=== PATIENT | female | born 1985 | race American Indian/Alaskan Native ===

== ENCOUNTER 2019-11-30 00:50 | Emergency (ER) | payer SELFPAY ==
[2019-11-30] MEDS ORDERED: SODIUM CHLORIDE 0.9% 1000 ML 1,000 ML IV ONE (01:06)
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
[2019-11-30 01:46] LABS: Basophils % (Auto) 0.4 % (0.0-1.8); Eosinophils # (Auto) 0.1 K/mm3 (0.0-0.4); Eosinophils % (Auto) 1.6 % (0.0-4.3); Hematocrit 30.9 % (30.3-42.9); Lymphocytes # (Auto) 1.6 K/mm3 (1.2-5.4); Lymphocytes % (Auto) 17.8 % (13.4-35.0); Mean Corpuscular HGB Conc 33 % (30-34); Mean Corpuscular Volume 76 fl (79-97); Monocytes # (Auto) 0.5 K/mm3 (0.0-0.8); Monocytes % (Auto) 5.8 % (0.0-7.3); Platelet Count 365 K/mm3 (140-440); Red Blood Count 4.07 M/mm3 (3.65-5.03); Red Cell Distribution Width 16.5 % (13.2-15.2)
[2019-11-30 02:02] LABS: Blood Urea Nitrogen 13 mg/dL (7-17); Hemolysis Index 0
[2019-11-30 02:09] LABS: BUN/Creatinine Ratio 19
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
[2019-11-30 03:26] LABS: Bilirubin,Urine NEG (Negative); Blood,Urine NEG (Negative); Color,Urine Yellow (Yellow); Mucus,Urine FEW /HPF; Protein,Urine <15 mg/dL mg/dL (Negative); Urobilinogen,Urine < 2.0 mg/dL (<2.0); WBC,Urine < 1.0 /HPF (0.0-6.0)
[2019-11-30 03:31] LABS: Amphetamine Screen,Urine PRESUMPTIVE NEGATIVE; Benzodiazepines Screen,Urine PRESUMPTIVE NEGATIVE; Cannabinoid Screen,Urine PRESUMPTIVE POSITIVE; Cocaine Screen,Urine PRESUMPTIVE NEGATIVE; Methadone Screen,Urine PRESUMPTIVE NEGATIVE; Opiate Screen,Urine PRESUMPTIVE NEGATIVE
[2019-11-30 04:54] VITALS: BP 110/60
== END 2019-11-30 04:53 | disposition home or self-care (01) ==
LOC: ED 00:50
DX: S39.91XA Unspecified injury of abdomen, initial encounter (principal); V49.69XA Unspecified car occupant injured in collision with other motor vehicles in traffic accident, initial encounter; Y93.89 Activity, other specified; Y92.488 Other paved roadways as the place of occurrence of the external cause; Y99.8 Other external cause status
CPT/HCPCS: 36415; 74177; 80048; 80307; 81001; 84703; 85025; 96360; 99284; J7030; Q9967; 80320; G0480

== ENCOUNTER 2021-06-02 10:13 | Emergency (ER) | payer SELFPAY ==
[2021-06-02] MEDS ORDERED: CYCLOBENZAPRINE 10 MG TAB PO ONE (11:39)
[2021-06-02] MEDS ORDERED: KETOROLAC 10 MG TAB PO ONE (11:39)
--- NOTE | 2021-06-02 12:29 | XRay Report ---
EXAMINATION: XR femur 2+V RT, XR hip 2-3V RT, INDICATION / CLINICAL INFORMATION: injury, pain COMPARISON: None available. FINDINGS: Pelvis/right hip: No acute fracture or malalignment. No significant arthritis. No focal soft tissue a bnormality. Right femur: No acute fracture or malalignment. No significant arthritis. No focal soft tissue abnorm ality. IMPRESSION: No acute osseous findings of the right hip or femur. Signer Name: Clem Millan MD Signed: 06/02/2021 12:24 PM Workstation Name: [id number]
--- NOTE | 2021-06-02 12:45 | Emergency Department Report ---
ED Lower Extremity HPI - General Chief Complaint: Extremity Injury, Lower Stated Complaint: RT LEG INJURY Time Seen by Provider: 06/02/21 11:12 Source: patient Mode of arrival: Ambulatory Limitations: No Limitations - History of Present Illness Initial Comments: 35-year-old female with past medical history of anxiety presents to the emergency room for evaluation of right hip and upper thigh pain. She states that she was exercising on Thursday doing yoga, and she pulled her legs down to make a certain poles and heard a popping sound in her right hip and has had pain since then. She states that pain is worse when she ambulates. Complaint: hip injury -: Sudden, days(s) Injury: Hip: Right, Thigh: Right Type of Injury: other Place: home (Well opposed and doing yoga) Severity: severe Severity scale (0 -10): 8 Worsens With: weight bearing Associated Symptoms: snap/pop sensation, able to partially bear weight. denies: swelling, numbness, tingling, unable to bear weight - Related Data Previous Rx's Medication Instructions Recorded Last Taken Type Ondansetron [Zofran Odt] 4 mg PO Q8HR PRN #14 tab.rapdis 11/30/19 Unknown Rx traMADoL [Ultram 50 MG tab] 50 mg PO Q4HR PRN #14 tablet 11/30/19 Unknown Rx Allergies Allergy/AdvReac Type Severity Reaction Status Date / Time No Known Allergies Allergy Verified 06/02/21 11:25 ED Review of Systems ROS: Stated complaint: RT LEG INJURY Other details as noted in HPI Comment: All other systems reviewed and negative Constitutional: denies: fever Respiratory: denies: shortness of breath Cardiovascular: denies: chest pain, palpitations, dyspnea on exertion, orthopnea Gastrointestinal: denies: abdominal pain, nausea, vomiting Genitourinary: denies: urgency, dysuria Musculoskeletal: denies: back pain Neurological: denies: headache, weakness ED Past Medical Hx - Past Medical History Previous Medical History?: Yes Additional medical history: Anxiety - Surgical History Past Surgical History?: No - Social History Smoking Status: Never Smoker Substance Use Type: None - Medications Home Medications: Home Medications Medication Instructions Recorded Confirmed Last Taken Type Ondansetron [Zofran Odt] 4 mg PO Q8HR PRN #14 tab.rapdis 20 06/02/21 Unknown Rx traMADoL [Ultram 50 MG tab] 50 mg PO Q4HR PRN #14 tablet 11/30/19 06/02/21 Unknown Rx ED Physical Exam - General Limitations: No Limitations General appearance: alert, in no apparent distress - Head Head exam: Present: atraumatic, normocephalic - Eye Eye exam: Present: normal appearance. Absent: conjunctival injection - Neck Neck exam: Present: normal inspection. Absent: tenderness - Respiratory Respiratory exam: Absent: respiratory distress - Cardiovascular Cardiovascular Exam: Present: normal rhythm - GI/Abdominal GI/Abdominal exam: Absent: distended - Expanded Lower Extremity Exam Right Hip exam: Present: full ROM, tenderness. Absent: swelling, ecchymosis, deformity, erythema, shortening Upper Leg exam: Present: normal inspection, full ROM, tenderness. Absent: swelling, abrasion, laceration, ecchymosis, deformity, dislocation, erythema Neuro vascular tendon exam: Present: no vascular compromise. Absent: pulse deficit, abnormal cap refill, motor deficit, sensory deficit, tendon deficit, extremity cold to touch, pallor Gait: Positive: observed and normal - Back Exam Back exam: Present: normal inspection. Absent: tenderness - Neurological Exam Neurological exam: Present: alert, oriented X3 - Psychiatric Psychiatric exam: Present: normal affect, normal mood - Skin Skin exam: Present: warm, dry, intact, normal color ED Course Vital Signs 06/02/21 06/02/21 06/02/21 10:38 11:23 13:17 Temperature 98.7 F 99.6 F 97.9 F Pulse Rate 78 81 77 Respiratory 18 20 18 Rate Blood Pressure 125/72 Blood Pressure 121/79 124/86 [Right] O2 Sat by Pulse 100 98 99 Oximetry ED Lower Extremity MDM - Radiology Data Radiology results: report reviewed, image reviewed Right hip and femur x-rays: FINDINGS: Pelvis/right hip: No acute fracture or malalignment. No significant arthritis. No focal soft tissue abnormality. Right femur: No acute fracture or malalignment. No significant arthritis. No focal soft tissue abnormality. IMPRESSION: No acute osseous findings of the right hip or femur. - Medical Decision Making 35-year-old female with past medical history of anxiety presents to the emergenc y room for evaluation of right hip and upper thigh pain. She states that she was exercising on Thursday doing yoga, and she pulled her legs down to make a certain poles and heard a popping sound in her right hip and has had pain since then. She states that pain is worse when she ambulates. No gross abnormalities noted on exam. Right femur and hip x-rays without any acute abnormalities noted. Patient will be discharged home with treatment for musculoskeletal pain only. She is advised to take Tylenol and ibuprofen as needed and follow-up with her primary care provider or orthopedics if no im provement or worsening symptoms. She verbalized understanding of and agreement with plan of care. Critical care attestation.: If time is entered above; I have spent that time in minutes in the direct care of this critically ill patient, excluding procedure time. ED Disposition Clinical Impression: Left hip pain, Left thigh pain Disposition: HOME / SELF CARE / HOMELESS Is pt being admited?: No Does the pt Need Aspirin: No Condition: Stable Instructions: How to Use Cold Therapy, [id number], Musculoskeletal Pain Additional Instructions: Use Tylenol and ibuprofen as needed for pain. Follow-up with primary care provider or orthopedics if no improvement or worsening symptoms. Return to the emergency department as needed. Referrals: SHARAD SANTAMARIA MD [Referring] - 3-5 Days ELIZABETH OLIVEROS MD [Staff Physician] - 3-5 Days Time of Disposition: 12:44
[2021-06-02 13:18] VITALS: BP 124/86
== END 2021-06-02 13:17 | disposition home or self-care (01) ==
LOC: ED 10:13
DX: M25.551 Pain in right hip (principal); M79.651 Pain in right thigh; F41.9 Anxiety disorder, unspecified; Z79.899 Other long term (current) drug therapy; X50.1XXA Overexertion from prolonged static or awkward postures, initial encounter; Y93.B9 Activity, other involving muscle strengthening exercises; Y92.89 Other specified places as the place of occurrence of the external cause; Y99.8 Other external cause status
CPT/HCPCS: 99283